=== PATIENT | female | born 1970 | race African-American/Black ===

== ENCOUNTER 2017-05-18 12:52 | Emergency (ER) | payer BC ==
[2017-05-18] MEDS ORDERED: LOSARTAN POTASSIUM 50 MG TABLET PO ONE (14:04)
--- NOTE | 2017-05-18 14:08 | ER Document Report ---
ED Medical Screen (RME) - General Chief Complaint: High Blood Pressure Stated Complaint: BLOOD PRESSURE PROBLEMS Time Seen by Provider: 05/18/17 13:55 Notes: This 46-year-old female patient comes emergency room for elevated blood pressure. She had been on lisinopril since 2005 when she was found to be diabetic and started metformin. In August 2016 she had right face and upper and lower lip swelling thought to possibly be due to angioedema so the lisinopril stopped. She was started on losartan 50 mg daily. She moved to this area without a primary care provider, ran out of her medications on 04/30/2017. She was able to be seen and restart the losartan 50 mg daily on 05/15/2017. Her blood pressure has remained elevated since then, and was 188/110 this morning. She called the provider's nurse and was told to come to the emergency room. She is asymptomatic with his elevated blood pressure. She will be given additional dose of losartan at this time as current recommendations for diabetic patient such as she, calls for 50-100 mg on a daily basis of the losartan. Baseline lab work will be obtained as she has never been a patient here in the past. She did have some lab work done a week or 2 ago but that is not accessible to us. I have greeted and performed a rapid initial assessment of this patient. A comprehensive ED assessment and evaluation of the patient, analysis of test results and completion of the medical decision making process will be conducted by additional ED providers. TRAVEL OUTSIDE OF THE [place] IN LAST 30 DAYS: No - Related Data Allergies/Adverse Reactions: latex Allergy (Verified 05/18/17 13:52) lisinopril Allergy (Verified 05/18/17 13:18) peanut Allergy (Verified 05/18/17 13:52) Anaphylaxis Home Medications: Current Home Medications Glyburide [Glyburide] 2.5 mg PO BID 05/18/17 [History] Losartan Potassium [Losartan Potassium] 50 mg PO DAILY 05/18/17 [History] Metformin HCl [Metformin HCl ER] 500 mg PO TID 05/18/17 [History] Past Medical History - Social History Chew tobacco use (# tins/day): No Frequency of alcohol use: None Drug Abuse: None Renal/ Medical History: Denies: Hx Peritoneal Dialysis Physical Exam - Vital signs Vitals: Temp Pulse Resp BP Pulse Ox 98.1 F 72 20 162/103 H 96 05/18/17 13:29 05/18/17 13:29 05/18/17 13:29 05/18/17 13:29 05/18/17 13:29 Course - Vital Signs Vital signs: Temp Pulse Resp BP Pulse Ox 98.1 F 72 20 162/103 H 96 05/18/17 13:29 05/18/17 13:29 05/18/17 13:29 05/18/17 13:29 05/18/17 13:29
[2017-05-18 14:40] LABS: ABSOLUTE EOSINOPHILS # (AUTO) 0.1 10^3/uL (0.0-0.6); ABSOLUTE LYMPHOCYTES (AUTO) 2.1 10^3/uL (0.5-4.7); ABSOLUTE MONOCYTES (AUTO) 0.5 10^3/uL (0.1-1.4); ABSOLUTE NEUT (AUTO) 4.7 10^3/uL (1.7-8.2); BASOPHILS % (AUTO) 0.6 % (0-2); EOSINOPHILS % (AUTO) 1.7 % (0-6); HEMATOCRIT 36.2 % (36.0-47.0); HEMOGLOBIN 11.5 g/dL (12.0-15.5); LYMPHOCYTES % (AUTO) 28.3 % (13-45); MEAN CORPUSCULAR HEMOGLOBIN 24.6 pg (27.0-33.4); MEAN CORPUSCULAR HGB CONC 31.8 g/dL (32.0-36.0); MEAN CORPUSCULAR VOLUME 77 fl (80-97); MONOCYTES % (AUTO) 6.4 % (3-13); PLATELET COUNT 289 10^3/uL (150-450); RED BLOOD COUNT 4.67 10^6/uL (3.72-5.28); RED CELL DISTRIBUTION WIDTH 16.7 % (11.5-14.0); TOTAL CELLS COUNTED % (AUTO) 100 %; WHITE BLOOD COUNT 7.4 10^3/uL (4.0-10.5)
[2017-05-18 15:03] LABS: ALANINE AMINOTRANSFERASE 27 U/L (9-52); ALBUMIN 4.5 g/dL (3.5-5.0); ALKALINE PHOSPHATASE 92 U/L (38-126); ANION GAP 11 (5-19); ASPARTATE AMINO TRANSFERASE 23 U/L (14-36); BILIRUBIN,DIRECT 0.2 mg/dL (0.0-0.4); BILIRUBIN,TOTAL 0.6 mg/dL (0.2-1.3); BLOOD UREA NITROGEN 14 mg/dL (7-20); CARBON DIOXIDE 26 mmol/L (22-30); CHLORIDE 104 mmol/L (98-107); GLUCOSE 78 mg/dL (75-110); POTASSIUM 4.4 mmol/L (3.6-5.0); SODIUM 140.9 mmol/L (137-145)
[2017-05-18 15:19] LABS: FREE T3 2.91 pg/mL (2.77-5.27); FREE T4 (FREE THYROXINE) 1.08 ng/dL (0.78-2.19)
[2017-05-18 15:32] LABS: THYROID STIMULATING HORMONE 2.48 uIU/mL (0.47-4.68)
--- NOTE | 2017-05-18 17:13 | ER Document Report ---
ED Blood Pressure Problem - General Chief Complaint: High Blood Pressure Stated Complaint: BLOOD PRESSURE PROBLEMS Time Seen by Provider: 05/18/17 13:55 Mode of Arrival: Ambulatory Information source: Patient TRAVEL OUTSIDE OF THE [place] IN LAST 30 DAYS: No - HPI Notes: 46-year-old female patient with history of hypertension and type 2 diabetes currently on metformin and losartan 50 mg. She presents today for elevated blood pressure. She is asymptomatic with this. After initially stopping lisinopril due to angioedema, she was changed while she was in [place] to losartan 50 mg daily. She moved to this area without a primary care provider, ran out of her medications on 04/30/2017. She has since established a primary care physician has seen him once but is planning on finding another primary care physician due to personal preference. She started back on the losartan 50 mg on 05/15/2017. Though she has been asymptomatic she checked her blood pressure and it was 188/ 110 this morning. She states as well that she specifically has no chest discomfort, pressure or shortness of breath headache visual change focal weakness numbness tingling. She has no gait abnormalities. Notes no new leg swelling. She was given an additional dose of losartan in the emergency department during her screening exam and still remains asymptomatic as I discussed this with her. She has had 3 doses total up to the point she came to the emergency department today. - Related Data Allergies/Adverse Reactions: latex Allergy (Verified 05/18/17 13:52) lisinopril Allergy (Verified 05/18/17 13:18) peanut Allergy (Verified 05/18/17 13:52) Anaphylaxis Past Medical History - Social History Smoking Status: Never Smoker Chew tobacco use (# tins/day): No Frequency of alcohol use: None Drug Abuse: None Family History: Reviewed & Not Pertinent Patient has suicidal ideation: No Patient has homicidal ideation: No Renal/ Medical History: Denies: Hx Peritoneal Dialysis Review of Systems - Review of Systems -: Yes All other systems reviewed and negative Physical Exam - Vital signs Vitals: Temp Pulse Resp BP Pulse Ox 98.1 F 72 20 162/103 H 96 05/18/17 13:29 05/18/17 13:29 05/18/17 13:29 05/18/17 13:29 05/18/17 13:29 Interpretation: Hypertensive - Notes Notes: GENERAL: VS as per nursing doc. Well-appearing, well-nourished and in no acute distress. HEAD: Atraumatic, normocephalic. EYES: Pupils equal round and reactive to light, extraocular movements intact, sclera anicteric, no conjunctival injection or discharge. ENT: Nares patent, oropharynx clear without exudates, moist mucous membranes. NECK: Normal range of motion, supple without lymphadenopathy. LUNGS: Breath sounds clear to auscultation bilaterally and equal. No wheezes rales or rhonchi. HEART: Regular rate and rhythm without 2/6 systolic murmur. ABDOMEN: Soft, non-tender. BACK: No CVA tenderness. EXTREMITIES: Normal range of motion, no calf tenderness, no edema. NEUROLOGICAL: Cranial nerves grossly intact. Normal speech. Normal sensory and motor exams. No gross cerebellar abnormalities. PSYCH: Normal mood, normal affect. SKIN: Warm, dry, normal turgor, no lesions noted. Course - Vital Signs Vital signs: Temp Pulse Resp BP Pulse Ox 98.1 F 72 20 162/93 H 98 05/18/17 13:29 05/18/17 13:29 05/18/17 13:29 05/18/17 16:45 05/18/17 16:31 - Laboratory Result Diagrams: 05/18/17 14:21 05/18/17 14:21 Laboratory results interpreted by me: 05/18/17 05/18/17 05/18/17 14:21 14:21 14:21 Hgb 11.5 L MCV 77 L MCH 24.6 L MCHC 31.8 L RDW 16.7 H Hemoglobin A1c % 8.4 H Calcium 11.0 H Discharge - Discharge Clinical Impression: Hypertension Condition: Good Disposition: HOME, SELF-CARE Instructions: High Blood Pressure ([facility]) Additional Instructions: Increase your losartan to 100 mg daily. Please ensure you get follow-up on your blood pressures as discussed. Return if you are developing symptoms such as chest discomfort, breathing difficulty or other new problem. Please make sure that someone is following your heart murmur which we noted on exam even though you have been told this before. Return for any other problems or concerns.
[2017-05-18 17:53] VITALS: BP 153/83
== END 2017-05-18 17:53 | disposition home or self-care (01) ==
LOC: ER 12:52
DX: I10 Essential (primary) hypertension (principal); E11.9 Type 2 diabetes mellitus without complications; Z79.899 Other long term (current) drug therapy
CPT/HCPCS: 36415; 80053; 83036; 84439; 84443; 84481; 85025; 99283

== ENCOUNTER 2017-05-19 19:55 | Emergency (ER) | payer BC ==
--- NOTE | 2017-05-19 21:16 | ER Document Report ---
ED Medical Screen (RME) - General Chief Complaint: High Blood Pressure Stated Complaint: FACIAL PAIN, LEFT ARM PAIN Time Seen by Provider: 05/19/17 21:12 Mode of Arrival: Ambulatory Information source: Patient Notes: Patient is a 46-year-old female with elevated blood pressure and diabetes who presents to the ER today for the second time in 2 days for elevated blood pressure. Patient was given extra losartan which she normally takes for blood pressure at home yesterday here in the ER, saw her primary care provider this morning was changed to losartan and amlodipine, however she has not tried that because she started taking 100 of losartan today as per ER physician yesterday' s request. Patient states that today she is having a headache, worse on the right side of her head and her right jaw feels "funny" and her left arm is tingling. She states that at 730 tonight it was 191 systolically. TRAVEL OUTSIDE OF THE [place] IN LAST 30 DAYS: No - Related Data Allergies/Adverse Reactions: latex Allergy (Verified 05/19/17 21:08) lisinopril Allergy (Verified 05/19/17 21:08) peanut Allergy (Verified 05/19/17 21:08) Anaphylaxis Past Medical History - General Information source: Patient - Social History Chew tobacco use (# tins/day): No Frequency of alcohol use: None Drug Abuse: None - Past Medical History Cardiac Medical History: Reports: Hx Hypertension Endocrine Medical History: Reports: Hx Diabetes Mellitus Type 1 Renal/ Medical History: Denies: Hx Peritoneal Dialysis Review of Systems - Review of Systems Cardiovascular: See HPI Physical Exam - Vital signs Vitals: Temp Pulse Resp BP Pulse Ox 98.2 F 77 20 166/98 H 99 05/19/17 20:02 05/19/17 20:02 05/19/17 20:02 05/19/17 20:02 05/19/17 20:02 - Notes Notes: General:NAD CV: RRR, no murmurs, rubs or gallops NEUROLOGICAL: Cranial nerves grossly intact. Normal sensory/motor exams. Good and equal strength bilaterally Course - Vital Signs Vital signs: Temp Pulse Resp BP Pulse Ox 98.2 F 77 20 166/98 H 99 05/19/17 20:02 05/19/17 20:02 05/19/17 20:02 05/19/17 20:02 05/19/17 20:02
[2017-05-19 21:53] LABS: ABSOLUTE BASOPHILS # (AUTO) 0.1 10^3/uL (0.0-0.2); ABSOLUTE EOSINOPHILS # (AUTO) 0.2 10^3/uL (0.0-0.6); ABSOLUTE LYMPHOCYTES (AUTO) 2.6 10^3/uL (0.5-4.7); ABSOLUTE MONOCYTES (AUTO) 0.6 10^3/uL (0.1-1.4); ABSOLUTE NEUT (AUTO) 6.1 10^3/uL (1.7-8.2); BASOPHILS % (AUTO) 0.9 % (0-2); EOSINOPHILS % (AUTO) 1.9 % (0-6); HEMATOCRIT 35.5 % (36.0-47.0); HEMOGLOBIN 11.5 g/dL (12.0-15.5); LYMPHOCYTES % (AUTO) 27.2 % (13-45); MEAN CORPUSCULAR HEMOGLOBIN 25.2 pg (27.0-33.4); MEAN CORPUSCULAR HGB CONC 32.3 g/dL (32.0-36.0); MEAN CORPUSCULAR VOLUME 78 fl (80-97); MONOCYTES % (AUTO) 6.6 % (3-13); PLATELET COUNT 293 10^3/uL (150-450); RED BLOOD COUNT 4.55 10^6/uL (3.72-5.28); RED CELL DISTRIBUTION WIDTH 16.7 % (11.5-14.0); SEGMENTED NEUTROPHILS % (AUTO) 63.4 % (42-78); TOTAL CELLS COUNTED % (AUTO) 100 %; WHITE BLOOD COUNT 9.6 10^3/uL (4.0-10.5)
[2017-05-19 21:56] LABS: INTERNATIONAL RATION (INR) 0.93; PROTHROMBIN TIME 13.1 SEC (11.4-15.4)
--- NOTE | 2017-05-19 21:59 | RADIOLOGY REPORT (SQ) ---
EXAM DESCRIPTION: CT HEAD WITHOUT COMPLETED DATE/TIME: 05/19/2017 9:49 pm REASON FOR STUDY: elevated bp/ headache/ left arm tingling COMPARISON: None. TECHNIQUE: Axial images acquired through the brain without intravenous contrast. Images reviewed wi th bone, brain and subdural windows. Images stored on PACS. All CT scanners at this facility use dose modulation, iterative reconstruction, and/or weight based d osing when appropriate to reduce radiation dose to as low as reasonably achievable (ALARA). [facility]: Dose Right [facility]: CareDose [facility]: Dose Right [facility]: Teradose 4D [facility]: [place] RADIATION DOSE: mGy. LIMITATIONS: None. FINDINGS: VENTRICLES: Normal size and contour. CEREBRUM: No masses. No hemorrhage. No midline shift. No evidence for acute infarction. Normal gra y/white matter differentiation. No areas of low density in the white matter. CEREBELLUM: No masses. No hemorrhage. No alteration of density. No evidence for acute infarction. EXTRAAXIAL SPACES: No fluid collections. No masses. ORBITS AND GLOBE: No intra- or extraconal masses. Normal contour of globe without masses. CALVARIUM: No fracture. PARANASAL SINUSES: No fluid levels. SOFT TISSUES: No mass or hematoma. OTHER: No other significant finding. IMPRESSION: No acute intracranial abnormality. EVIDENCE OF ACUTE STROKE: NO. COMMENT: Quality ID # [id number]: Final reports with documentation of one or more dose reduction techniques (e.g., Automated exposure control, adjustment of the mA and/or kV according to patient size, use of iterative reconstruction technique) TECHNICAL DOCUMENTATION: JOB ID: [id number] [email or web address]- All Rights Reserved
--- NOTE | 2017-05-19 23:20 | EKG REPORT ---
SEVERITY:- ABNORMAL ECG - SINUS RHYTHM VENTRICULAR PREMATURE COMPLEX LEFT VENTRICULAR HYPERTROPHY ANTERIOR Q WAVES, POSSIBLY DUE TO LVH BORDERLINE T ABNORMALITIES, INFERIOR AND LATERAL CHEST LEADS : Confirmed by: Bernard Vickers 19-May-2017 23:20:19
[2017-05-19] MEDS ORDERED: METOPROLOL TARTRATE 25 MG TABLET PO ONE (23:51)
[2017-05-20 00:04] LABS: ALANINE AMINOTRANSFERASE 26 U/L (9-52); ALBUMIN 4.3 g/dL (3.5-5.0); ALKALINE PHOSPHATASE 92 U/L (38-126); ANION GAP 12 (5-19); ASPARTATE AMINO TRANSFERASE 22 U/L (14-36); BILIRUBIN,DIRECT 0.2 mg/dL (0.0-0.4); BILIRUBIN,TOTAL 0.5 mg/dL (0.2-1.3); BLOOD UREA NITROGEN 15 mg/dL (7-20); CALCIUM 10.9 mg/dL (8.4-10.2); CARBON DIOXIDE 22 mmol/L (22-30); CHLORIDE 105 mmol/L (98-107); CREATINE KINASE 64 U/L (30-135); GLUCOSE 108 mg/dL (75-110); SODIUM 138.9 mmol/L (137-145); TOTAL PROTEIN 7.5 g/dL (6.3-8.2)
[2017-05-20 00:16] LABS: CREATINE KINASE MB 0.66 ng/mL (<4.55)
[2017-05-20 00:22] LABS: TROPONIN I < 0.012 ng/mL
--- NOTE | 2017-05-20 01:25 | ER Document Report ---
ED Blood Pressure Problem - General Chief Complaint: High Blood Pressure Stated Complaint: FACIAL PAIN, LEFT ARM PAIN Time Seen by Provider: 05/19/17 21:12 Mode of Arrival: Ambulatory Information source: Patient Notes: Patient is a 46-year-old female with elevated blood pressure and diabetes who presents to the ER today for the second time in 2 days for elevated blood pressure. Patient was given extra losartan which she normally takes for blood pressure at home yesterday here in the ER, saw her primary care provider this morning was changed to losartan and amlodipine, however she has not tried that because she started taking 100 of losartan today as per ER physician yesterday' s request. Patient states that today she is having a headache, worse on the right side of her head and her right jaw feels "funny" and her left arm is tingling. She states that at 730 tonight it was 191 systolically. TRAVEL OUTSIDE OF THE [place] IN LAST 30 DAYS: No - Related Data Allergies/Adverse Reactions: latex Allergy (Verified 05/19/17 21:08) lisinopril Allergy (Verified 05/19/17 21:08) peanut Allergy (Verified 05/19/17 21:08) Anaphylaxis Past Medical History - General Information source: Patient - Social History Smoking Status: Never Smoker Chew tobacco use (# tins/day): No Frequency of alcohol use: None Drug Abuse: None Family History: Reviewed & Not Pertinent Patient has suicidal ideation: No Patient has homicidal ideation: No - Past Medical History Cardiac Medical History: Reports: Hx Hypertension Endocrine Medical History: Reports: Hx Diabetes Mellitus Type 1 Renal/ Medical History: Denies: Hx Peritoneal Dialysis Review of Systems - Review of Systems Constitutional: No symptoms reported EENT: No symptoms reported Cardiovascular: See HPI Respiratory: No symptoms reported Gastrointestinal: No symptoms reported Genitourinary: No symptoms reported Female Genitourinary: No symptoms reported Musculoskeletal: No symptoms reported Skin: No symptoms reported Hematologic/Lymphatic: No symptoms reported Neurological/Psychological: See HPI Physical Exam - Vital signs Vitals: Temp Pulse Resp BP Pulse Ox 98.2 F 77 20 166/98 H 99 05/19/17 20:02 05/19/17 20:02 05/19/17 20:02 05/19/17 20:02 05/19/17 20:02 - Notes Notes: PHYSICAL EXAMINATION: GENERAL: Well-appearing and in no acute distress. HEAD: Atraumatic, normocephalic. EYES: Pupils equal round and reactive to light, extraocular movements intact, sclera anicteric, conjunctiva are normal. NECK: Normal range of motion, supple without lymphadenopathy LUNGS: CTAB and equal. No wheezes rales or rhonchi. HEART: Regular rate and rhythm without murmurs ABDOMEN: Soft, no tenderness. No guarding, no rebound BACK: no vertebral tenderness, normal ROM GI/: no CVA tenderness EXTREMITIES: Normal range of motion, no pitting edema. No cyanosis. NEUROLOGICAL: Cranial nerves grossly intact. Normal sensory/motor exams. Good and equal strength bilaterally, Kernig and Brudzinski's signs negative, Romberg' s test normal, normal heel to lopez testing PSYCH: Normal mood, normal affect. SKIN: Warm, Dry, normal turgor, no rashes or lesions noted Course - Re-evaluation Re-evalutation: 05/20/17 05:58 CT of the head negative, chest x-ray normal, lab work unremarkable today including normal cardiac enzymes, EKG reveals a normal sinus rhythm without evidence of ischemia or abnormality, patient's blood pressure did reduce to 135/ 78 while here in the emergency department after given metoprolol. Patient to start her new blood pressure medication combination that was given to her by her primary care provider today. Patient is asymptomatic at this time. Patient would like to go home. - Vital Signs Vital signs: Temp Pulse Resp BP Pulse Ox 98.2 F 77 13 143/94 H 100 05/19/17 20:02 05/19/17 20:02 05/20/17 01:31 05/20/17 01:31 05/20/17 01:31 - Laboratory Result Diagrams: 05/19/17 21:40 05/19/17 23:35 Laboratory results interpreted by me: 05/19/17 05/19/17 21:40 23:35 Hgb 11.5 L Hct 35.5 L MCV 78 L MCH 25.2 L RDW 16.7 H Calcium 10.9 H Discharge - Discharge Clinical Impression: Hypertension Qualifiers: Hypertension type: essential hypertension Qualified Code(s): I10 - Essential ( primary) hypertension Condition: Stable Disposition: HOME, SELF-CARE Instructions: High Blood Pressure, Requiring Treatment ([facility]) Additional Instructions: Take clonidine for a blood pressure of 180 systolically (top number) or over. Do not take WITH your regular blood pressure medication. Return immediately for any new or worsening symptoms. Start taking your amlodipine/losartan that the doctor prescribed today. Prescriptions: Clonidine HCl 0.1 mg PO PRN PRN #15 tablet PRN Reason:
[2017-05-20 01:45] VITALS: BP 143/94
== END 2017-05-20 01:45 | disposition home or self-care (01) ==
LOC: ER 19:55
DX: R51 Headache (principal); M79.602 Pain in left arm; E10.9 Type 1 diabetes mellitus without complications; I10 Essential (primary) hypertension; Z91.040 Latex allergy status; Z88.0 Allergy status to penicillin; Z91.010 Allergy to peanuts
CPT/HCPCS: 36415; 70450; 80053; 82550; 82553; 84484; 85025; 85610; 93005; 93010; 99284

== ENCOUNTER → 2017-07-05 | Outpatient (CLI) | payer BC ==
--- NOTE | 2017-07-05 10:44 | RADIOLOGY REPORT (SQ) ---
EXAM DESCRIPTION: CTA CHEST COMPLETED DATE/TIME: 07/05/2017 10:25 am REASON FOR STUDY: PLEURISY (R09.1) R09.1 PLEURISY COMPARISON: None. TECHNIQUE: CT scan of the chest performed using helical scanning technique with dynamic intravenous contrast injection. Images reviewed with lung, soft tissue and bone windows. Reconstructed coronal and sagittal MPR images reviewed. Additional 3 dimensional post-processing performed to develop Maximal Intensity Projection images (NH P). All images stored on PACS. All CT scanners at this facility use dose modulation, iterative reconstruction, and/or weight based d osing when appropriate to reduce radiation dose to as low as reasonably achievable (ALARA). [facility]: Dose Right [facility]: CareDose [facility]: Dose Right [facility]: Teradose 4D [facility]: [email or web address] CONTRAST TYPE AND DOSE: contrast/concentration: Isovue 370.00 mg/ml; Total Contrast Delivered: 76.0 ml; Total Saline Delivered: 110.0 ml RENAL FUNCTION: Creatinine 1.3 RADIATION DOSE: CT Rad equipment meets quality standard of care and radiation dose reduction techniq ues were employed. CTDIvol: 2.8 - 22.5 mGy. DLP: 538 mGy-cm. . LIMITATIONS: Timing of contrast bolus. FINDINGS: LUNGS AND PLEURA: No masses, infiltrates, pneumothorax. No pleural effusions, calcificati ons. AORTA AND GREAT VESSELS: No aneurysm. Contrast bolus not optimized for the aorta. HEART: No pericardial effusion. No significant coronary artery calcifications. PULMONARY ARTERIES: No emboli visualized in the main pulmonary arteries or the segmental branches. HILAR AND MEDIASTINAL STRUCTURES: No identified masses or abnormal nodes. HARDWARE: None in the chest. UPPER ABDOMEN: No significant findings. Limited exam. THYROID AND OTHER SOFT TISSUES: No masses. No adenopathy. BONES: No acute or significant finding. 3D MIPS: Confirm above findings. OTHER: No other significant finding. IMPRESSION: No PE. No acute findings. COMMENT: Quality ID # 436: Final reports with documentation of one or more dose reduction techniques (e.g., Automated exposure control, adjustment of the mA and/or kV according to patient size, use of iterative reconstruction technique) TECHNICAL DOCUMENTATION: JOB ID: [id number] [employer]- All Rights Reserved Reading location - IP/workstation name: [email or web address]
== END ==
LOC: RAD 09:44
PROVIDERS: ATTEND Internal Medicine
DX: R09.1 Pleurisy (principal)
CPT/HCPCS: 71275; 82565

== ENCOUNTER → 2018-06-06 | Outpatient (CLI) | payer BC ==
--- NOTE | 2018-06-06 15:50 | RADIOLOGY REPORT (SQ) ---
EXAM DESCRIPTION: U/S RETROPERITON (RENAL/AORTA) COMPLETED DATE/TIME: 06/06/2018 3:07 pm REASON FOR STUDY: ABN RESULTS R94.4 ABNORMAL RESULTS OF KIDNEY FUNCTION STUDIES COMPARISON: None. TECHNIQUE: Dynamic and static grayscale images acquired of the kidneys and bladder and recorded on P ACS. Additional selected color Doppler and spectral images recorded. LIMITATIONS: None. FINDINGS: RIGHT KIDNEY: Normal size. Normal echogenicity. No solid or suspicious masses. No hydronep hrosis. No calcifications. LEFT KIDNEY: Normal size. Normal echogenicity. No solid or suspicious masses. No hydronephrosis. No calcifications. BLADDER: No masses. OTHER FINDINGS: No other significant finding. IMPRESSION: NORMAL RENAL AND BLADDER ULTRASOUND. TECHNICAL DOCUMENTATION: JOB ID: [id number] [employer]- All Rights Reserved Reading location - IP/workstation name: [email or web address]
== END ==
LOC: RAD 14:37
PROVIDERS: ATTEND Internal Medicine
DX: R94.4 Abnormal results of kidney function studies (principal)
CPT/HCPCS: 76770